=== PATIENT | female | born 1980 | race Caucasian/White ===

== ENCOUNTER 2021-06-04 11:29 | Emergency (ER) | payer BC ==
[~2021-06-04] VITALS: Ht 180.3 cm; Wt 61.2 kg
[2021-06-04] MEDS ORDERED: DELSYM30 MG/5 ML PO (11:46)
[2021-06-04] MEDS ORDERED: FLONASE ALLER15.8 ML (11:46)
== END 2021-06-04 14:20 | disposition home or self-care (01) ==
LOC: ER1 11:29
DX: U07.1 COVID-19 (principal); Z23 Encounter for immunization; Z88.8 Allergy status to other drugs, medicaments and biological substances
CPT/HCPCS: 99283; M0243